=== PATIENT | female | born 1970 | race Caucasian/White ===

== ENCOUNTER → 2019-10-09 10:20 | Outpatient (CLI) | payer BC, SELFPAY ==
--- NOTE | 2019-10-09 10:35 | XR_ITS ---
PROCEDURE: XR LUMBAR SPINE MIN 4V CLINICAL INDICATION: LOW BACK PAIN COMPARISON: No exams were available for comparison FINDINGS: Minimal anterolisthesis L4 on L5 5 mm. There is mild degenerative disc disease at L1-L2 L2-L3 3 and L3-L4. No acute fracture or dislocation. No lytic or blastic change. IMPRESSION: Mild degenerative disc disease of the lumbar spine with minimal anterolisthesis L4 on L5 Dictated by: Jayden Plata MD 10/09/2019 13:45 Electronically signed by Jayden Plata MD in [place] 10/09/2019 13:45
== END ==
PROVIDERS: PCP Nurse Practitioner Family; Visit Provider Nurse Practitioner Family
DX: M54.5 Low back pain (principal)
CPT/HCPCS: 72110

== ENCOUNTER 2022-10-11 10:16 | Emergency (ER) | payer BC, SELFPAY ==
[2022-10-11 10:20] VITALS: BP 168/87; PULSE 87; RESP 20; TEMP 36.6; O2SAT 97; BMI 30.4
--- NOTE | 2022-10-11 10:31 | EXP.UTC ---
Discharge Plan Disposition Patient Disposition: Home, Self-Care Condition: Good Prescriptions Prescriptions: New methylprednisolone [Medrol (Kapil)] 4 mg tablets,dose pack See Rx Instructions .Route .COMPLEX 6 Days Qty: 21 0RF Rx Instructions: taper pack; amoxicillin-pot clavulanate 875-125 mg Tablet 1 tab PO Q12H Qty: 20 0RF meclizine [VertiCalm] 25 mg tablet 25 mg PO TID PRN (Reason: dizziness) Qty: 20 0RF Referrals Follow up/Referrals: Tiara Marie APRN [Primary Care Provider] - See instructions Activity Restrictions/Add. Instructions Additional Instructions/Restrictions: *Monitor Temp, Over the counter Motrin or Tylenol as directed/as needed Tylenol every 4 hours and Motrin every 6 hours (as long as your family doctor has told you that you can take it) for fever or pain. and straight to ER if unable to lower temp less than 101.0 after medication given Take medication as prescribed Slow steady movements Follow up with your Family Doctor if no improvement or any worsening of symptoms *Sleep elevated *Humidifier/Vaporizer Do not drive while you are feeling dizzy Follow up IMMEDIATELY for new or worsening symptoms or no Noticeable improvement over the next 48-72 hours. 911 for difficulty breathing or swallowing Clinical Impressions Clinical Impression: Otitis media, Vertigo Stand Alone Forms Stand Alone Forms: Work/School Release Instructions Patient Instructions: Vertigo, Middle Ear Infection, DI for Sinusitis, DI for Vertigo Discharge ED Provider: Alanis De Los Santos [facility] HPI General Stated complaint: dizzy, Lt ear pain Mode of Arrival: Ambulatory Source of Information: Patient Limitations: No Limitations Time Seen by Provider: 10/11/22 10:32 Description of Symptoms (Recalled from Triage Doc. by RN): PATIENT C/O DIZZINESS ON AND OFF FOR THE PAST MONTH. SHE STATES IT OCCURS MOSTLY WHEN LYING DOWN, BUT WAS WORSE THIS MORNING. SHE ALSO STATES SHE HAS BEEN HAVING SINUS ISSUES AND PROBLEMS WITH HER EARS WELL HEENT Symptoms (Recalled from RN notes): Yes Resp Symptoms (Recalled from RN notes): No Skin Symptoms (Recalled from RN notes): No MS Symptoms (Recalled from RN notes): No Functional Status (Recalled from RN notes): WNL History of Present Illness Provider Complaint: Patient states that she has been having dizzy feeling on and off for about a month when she is laying down and position changes States that this morning she got up and was feeling dizzy when she sharon up and would have dizziness when she would turn her head or look down States that she felt like the room was spinning around her States that for the last week she has been having sinus pressure and pain in her left ear not sure it that may be related or not Related Data Previous Rx's Medication Instructions Recorded amoxicillin 875 mg-potassium 1 tab PO Q12H #20 tabs 10/11/22 clavulanate 125 mg tablet meclizine 25 mg tablet (VertiCalm) 25 mg PO TID PRN dizziness #20 tabs 10/11/22 methylprednisolone 4 mg tablets in See Rx Instructions .Route 10/11/22 a dose pack (Medrol (Kapil)) .COMPLEX 6 days #21 tabs Allergies Allergy/AdvReac Type Severity Reaction Status Date / Time No Known Drug Allergies Allergy Unknown Verified 10/11/22 10:31 [NKDA] Worker's Comp Is this a Worker's Comp case?: No PFSH [facility] Disclaimer: The information contained in this section may have been updated after the patient was seen, as this information can be updated by other users. Medical History (Updated 10/11/22 @ 10:41 by Alanis De Los Santos APRN) Urinary tract infection Surgical History (Updated 10/11/22 @ 10:31 by Donna Taveras RN) History of section Social History Smoking Status: Never smoker alcohol intake: never current occupational status: employed Travel in the last 8 weeks: None ROS Obtained: Yes All systems reviewed & no additional complaints except as documented and Yes Systems reviewe
[2022-10-11 10:46] VITALS: BP 168/87; PULSE 87; RESP 20; TEMP 36.6; O2SAT 97
== END 2022-10-11 10:50 | disposition home or self-care (01) ==
PROVIDERS: Emergency Provider Nurse Practitioner; PCP Nurse Practitioner Family
DX: H66.90 Otitis media, unspecified, unspecified ear (principal); R42 Dizziness and giddiness
CPT/HCPCS: 99204; 99212; G0463

== ENCOUNTER 2022-11-27 10:13 | Outpatient (RCR) | payer BC, SELFPAY | END 2022-11-27 10:15 | disposition home or self-care (01) | LOC: PT 10:13 | PROVIDERS: PCP Nurse Practitioner Family; Visit Provider Nurse Practitioner Family | DX: R42 Dizziness and giddiness (principal) | CPT/HCPCS: 97110; 97140; 97163 ==

== ENCOUNTER 2025-02-13 15:54 | Outpatient (CLI) | payer BC, SELFPAY ==
--- OUTSIDE RECORDS SUMMARY | 2025-02-13 15:57 | XMS_ITS | Clinical Summary ---
Author Organization [facility] Address [address] [place] [address] Care Team Providers Care Senior Instructor Name Role Phone Unavailable Primary Care Provider Unavailabl e Social History Tobacco Use Types Packs/Day Years Used Date Smoking Tobacco: Never Assessed Abuse Screen Answer Date Recorded Unsafe at Home or Work/School Not on file Feels Threatened by Someone? Not on file 01/2023 Does Anyone Keep You from Co ntacting Others or Doint Things Outside the Home? Not on file 02/06/2023 Physical Sign of Abuse Present Not on file 1 Housing Stability Answer Date Recorded Current Living Arrangements Not on file 01/28 Potentially Unsafe Housing Conditions Not on james e 02/06/2023 Family and Community Support Answer Dov e Recorded Help with Day-to-Day Activities Not on file 02/06/2023 Lonely or Isolated Not on file 02/06/2023 Employment Answer Date Recorded Do you want help finding or keeping work or a meredith b? Not on file 02/06/2023 Disabilities Answer Date Recorded Concentrating, Remembering, or Making Decisions Difficulty Not on file 02/06/2023 Doing Errands Independently Difficulty Not on fi le 02/06/2023 Education Answer Date Recorded Help with school or training? Not on file Preferred Language Not on file 02/06/2023 Comments Unknown Sex and Gender Information Value Date Recorded Sex Assigned at Not on file Legal Sex Female 1:43 PM EDT Gender Identity Not on file Sexual Orientation Not on file Plan of Treatment Health Maintenance Due Date Last Done Comments ANNUAL PHYSICAL 1968 Annual Gynecologic Pelvic and Breast Exam 1968 HEPATITIS C SCREENING 1968 TDAP/TD VACCINES (1 - Tdap) 09/19/1987 MAMMOGRAM 2008 COLOGUARD 2013 COLON CANCER SCREENING 5 YEAR SIGMOIDOSCOPY 2013 COLONOSCOPY [address] CANCER SCREENING 2013 CT COLONOGRAPHY 2013 FECAL OCCULT BLOOD TEST 2013 FIT Testing (1 year) 2013 Pneumococcal Vaccine 50+ (1 of 1 - PCV) 2018 ZOSTER VACCINE (1 of 2) 2018 INFLUENZA VACCINE 11/28/2024
--- NOTE | 2025-02-13 15:58 | XR_ITS ---
FINAL REPORT CLINICAL HISTORY: Right great toe pain FINDINGS: RIGHT FOOT 3 views of the right foot were obtained. There is no acute fracture or dislocation. There are moderate degenerative changes of the first MTP joint. Visualized joint spaces are normally aligned. There is a mild calcaneal spur. Soft tissues are unremarkable. IMPRESSION: No acute bony abnormality. Reviewed, Interpreted and Dictated by Richie Estrada MD Transcribed by Ifrah Oro Authenticated and [facility]
--- NOTE | 2025-02-13 15:58 | XR_ITS ---
FINAL REPORT CLINICAL HISTORY: lumbago, chronic low back pain COMPARISON: 10/09/2019 FINDINGS: 3 views of the lumbar spine were obtained. No fracture is identified. Mild disc space narrowing is present. There is mild anterolisthesis of L3 on L4 and L4 on L5. IMPRESSION: Degenerative changes without acute bony abnormality. Reviewed, Interpreted and Dictated by Richie Estrada MD Transcribed by Ifrah Oro Authenticated and [facility]
--- NOTE | 2025-02-13 15:58 | XR_ITS ---
FINAL REPORT CLINICAL HISTORY: Right hip pain FINDINGS: RIGHT HIP Two views of the right hip demonstrate no acute fracture or dislocation. The joint spaces appear normal. The visualized bony structures are well aligned. No soft tissue abnormality is seen. IMPRESSION: No acute bony abnormality. Reviewed, Interpreted and Dictated by Richie Estrada MD Transcribed by Ifrah Oro Authenticated and . [facility]
[2025-02-13 17:05] LABS: Hematocrit 40.0 % (37.0-47.0); Hemoglobin 13.9 g/dL (12.2-16.2); Immature Granulocytes % 0.4 %; Mean Corpuscular HGB Conc 34.8 g/dL (31.8-35.4); Mean Corpuscular Hemoglobin 30.8 pg (27.0-31.2); Mean Corpuscular Volume 88.7 fl (81-99); Nucleated Red Blood Cells % 0 %; Platelet Count 311 K/mm3 (142-424); Red Blood Count 4.51 M/mm3 (4.20-5.40); Red Cell Distribution Width-SD 39.7 fL; White Blood Count 7.6 K/mm3 (4.8-10.8)
[2025-02-13 17:29] LABS: Alanine Aminotransferase 28 U/L (12-78); Albumin Level 4.2 g/dl (3.5-5.0); Albumin/Globulin Ratio 1.8 (1.1-1.8); Alkaline Phosphatase 115 U/L (38-126); Anion Gap 12.8 mEq/L (5-15); Aspartate Amino Transferase 28 U/L (14-36); Bilirubin,Total 0.6 mg/dl (0.2-1.3); Blood Urea Nitrogen 16 mg/dl (7-17); Calcium 8.8 mg/dl (8.4-10.2); Carbon Dioxide 25 mmol/L (22.0-30.0); Chloride 103 mmol/L (98-107); Cholesterol 231 mg/dl (140-200); Creatinine,Serum 0.80 mg/dl (0.52-1.04); Estimated Glomerular Filt Rate 74 ml/min (>60); GFR (African American) 90 ML/MIN (>60); Globulin 2.3 g/dL (1.3-3.2); Glucose 105 mg/dl (74-100); HDL Cholesterol 68 mg/dl (40-60); Potassium 3.8 mmoL/L (3.5-5.1); Sodium 137 mmol/L (136-145); Total Protein,Serum 6.5 g/dl (6.3-8.2); Triglycerides 132 mg/dl (30-150)
[2025-02-13 18:02] LABS: Thyroid Stimulating Hormone 2.34 uIU/mL (0.465-4.68)
[2025-02-13 18:21] LABS: Vitamin B12 266 pg/mL (239-931)
[2025-02-13 19:26] LABS: Ferritin 45.3 ng/ml (11.1-264)
== END 2025-02-13 23:59 | disposition home or self-care (01) ==
LOC: RAD 15:55
PROVIDERS: PCP Nurse Practitioner Family; Visit Provider Nurse Practitioner Family
DX: M47.26 Other spondylosis with radiculopathy, lumbar region (principal); M25.551 Pain in right hip; M79.674 Pain in right toe(s); Z13.220 Encounter for screening for lipoid disorders; R53.83 Other fatigue; R42 Dizziness and giddiness
CPT/HCPCS: 72100; 73502; 73630; 80053; 80061; 82607; 82728; 84443; 85025